=== PATIENT | male | born 1985 | race Caucasian/White ===

== ENCOUNTER 2019-10-07 14:17 | Emergency (ER) | payer OTHER, SELFPAY ==
--- NOTE | 2019-10-07 14:28 | ED.URI ---
HPI - URI/Sore Throat General Chief Complaint: Upper Respiratory Infection Stated Complaint: achy/no energy/fever Time Seen by Provider: 10/07/19 14:29 Source: patient, family and RN notes reviewed History of Present Illness HPI Narrative: Patient is a 34-year-old male that presents the urgent care with complaints of body aches, fatigue, chills, sweats. Patient states that it started yesterday and he feels it has gotten worse. Patient has been using ibuprofen. States that he woke up yesterday with a sore throat which is since improved. Also reports of nonproductive cough. Denies any shortness of breath or chest pain. No other acute complaints. No acute distress noted. Patient aware the plan of care. Related Data Allergies Allergy/AdvReac Type Severity Reaction Status Date / Time Penicillins Allergy Hives Verified 10/07/19 14:33 Review of Systems Review of Systems: Narrative: CONSTITUTIONAL: Reports of chills, sweats EYES: Denies visual changes, redness, or discharge. ENT: Reports of nasal congestion intermittent sore throat CARDIOVASCULAR: Denies chest pain, palpitations, or edema. RESPIRATORY: Reports of nonproductive cough without dyspnea GASTROINTESTINAL: Denies abdominal pain, nausea, vomiting, or diarrhea. GENITOURINARY: Denies dysuria or hematuria. SKIN: Denies rash or itching. MUSCULOSKELETAL: Denies back pain, joint pain; reports of body aches and fatigue NEUROLOGIC: Denies headache, numbness, or weakness. All other systems reviewed are negative, except as documented in HPI. PMFSH Comments At the time of my signature, I reviewed and agree with the nursing past medical, surgical, social, and family history. There is no relevant family history pertinent to the patient complaint. Exam Narrative: Exam Narrative: GENERAL: This is a well-nourished, well-developed patient, appears fatigued HEAD: normocephalic, atraumatic. EYES: PERRL. Sclera clear/white. Vision is grossly intact. EARS: External ears normal, auditory canals clear and without drainage, TMs normal without perforation. Hearing grossly intact. NOSE: External nose normal with no obvious nasal discharge, bilateral erythemic nares with clear no rhinorrhea. THROAT: Mucous membranes moist, posterior pharynx clear. NECK: Neck supple, non-tender right submandibular mild to moderate lymphadenopathy CARDIOVASCULAR: Regular rate and rhythm without murmurs, gallops, or rubs. RESPIRATORY: Clear to auscultation. Breath sounds equal bilaterally. No wheezes, rales, or rhonchi. SKIN: warm, intact with no suspicious lesions or rash, good texture and turgor. NEURO: awake, alert, and oriented to person, place and time. There were no obvious focal neurologic abnormalities. EXTREMITIES: No clubbing, cyanosis, or edema. Course Vital Signs Vital signs: Vital Signs Temperature 98.9 F 10/07/19 14:34 Pulse Rate 95 10/07/19 14:34 Respiratory Rate 19 10/07/19 14:34 Blood Pressure 151/86 H 10/07/19 14:34 Pulse Oximetry 99 10/07/19 14:34 Temperature 98.9 F 10/07/19 14:34 Pulse Rate 95 10/07/19 14:34 Respiratory Rate 19 10/07/19 14:34 Blood Pressure 151/86 H 10/07/19 14:34 Pulse Oximetry 99 10/07/19 14:34 Reviewed?patient is informed that they may have pre-hypertension or hypertension based on a blood pressure reading in the department. I recommend the patient call the primary care provider listed on their discharge instructions or a physician of their choice this week to arrange follow-up for further evaluation of possible pre-hypertension or hypertension. MDM - URI/Sore Throat MDM Narrative Medical decision making narrative: Reviewed lab results with the patient. He is aware that flu swab was negative. Treat symptoms with [id number] medication such as Robitussin/Delsym for cough, Claritin for allergy-like symptoms, Flonase for nasal congestion, Tylenol/Motrin for fever/body aches. Increase fluids, especially water and rest. Use a humidifier. B
[2019-10-07 14:34] VITALS: BP 151/86; PULSE 95; RESP 19; TEMP 37.2; O2SAT 99
== END 2019-10-07 15:20 | disposition home or self-care (01) ==
PROVIDERS: Emergency Provider Nurse Practitioner Family; PCP Internal Medicine
DX: B34.9 Viral infection, unspecified (principal)
CPT/HCPCS: 87804; 99212; G0463

== ENCOUNTER → 2020-09-21 06:51 | Outpatient (CLI) | payer OTHER, SELFPAY ==
[2020-09-21 19:41] LABS: SARS-CoV-2 RNA PCR Negative
== END ==
PROVIDERS: PCP Internal Medicine; Visit Provider Internal Medicine
DX: Z20.822 Contact with and (suspected) exposure to COVID-19 (principal)
CPT/HCPCS: C9803; U0003; U0005